=== PATIENT | male | born 1960 | race Caucasian/White ===

== ENCOUNTER 2024-12-05 09:01 | Outpatient (CLI) | payer BC | END 2024-12-05 23:59 | disposition home or self-care (01) | LOC: RAD 09:01 | PROVIDERS: ATTEND Psychiatry & Neurology Neurology | DX: R13.12 Dysphagia, oropharyngeal phase (principal); R47.1 Dysarthria and anarthria; G31.83 Neurocognitive disorder with Lewy bodies | CPT/HCPCS: 74230 ==